=== PATIENT | male | born 1970 | race Caucasian/White ===

== ENCOUNTER 2017-01-11 15:29 | Emergency (ER) | payer OTHER ==
[~2017-01-11] VITALS: Ht 177.8 cm; Wt 98.5 kg
[2017-01-11 15:36] VITALS: BP 168/84; TEMP 36.7; Ht 177.8 cm; Wt 98.5 kg
[2017-01-11] MEDS ORDERED: CYCL10TA6 PO (16:18)
[2017-01-11] MEDS ORDERED: PRED50TA PO (16:18)
--- NOTE | 2017-01-11 16:19 | EMERGENCY ROOM VISIT NOTE ---
ED Visit Note First contact with patient: 15:47 Chief Complaint: Lower Back Pain History of Present Illness: Patient is a 46-year-old male who presents to the emergency Department this evening for evaluation of acute onset of low back pain. He reports that he was lifting a kayak and attempting to twist when he developed an acute onset of low back pain. He had difficulty with changes in position which prompted his visit today. He reports trying to take 2 ibuprofen without relief of symptoms. He does report a history of similar symptoms last year which had initially resulted with numbness down the RIGHT leg. He has no numbness or tingling today. There is been no loss of control bowel/bladder saddle anesthesia. The patient rates his current discomfort as an 8/10. He denies any fevers, chills, abdominal pain, hematochezia, melena, hematuria, or dysuria. Medications: Reviewed and discussed with the patient. Allergies: No known allergies. PMH: No pertinent past medical history. SHx: Patient is a 46-year-old male who lives locally. ROS: All pertinent positive and negative review of systems are appropriately documented in the History of Present Illness. Physical Exam: VITAL SIGNS - Vital signs and nursing notes were reviewed. GENERAL - 46-year-old male appearing his stated age and in noticeable discomfort throughout the exam. NECK - FROM of the cervical spine. ABDOMEN - Abdominal contour flat without pulsations or visible masses. BS normoactive all four quadrants. No tenderness, palpable masses, hepatosplenomegaly, or ascites noted. MUSCULOSKELETAL - ROM of the lumbar spine region was limited in all directions. Pt was laying on the exam table. Pt made semi-guarded movements when asked to change position. No step-off deformities were palpated down the thoracolumbar spines. Moderate Tenderness to Palpation with paraspinal muscle spasm experienced at the level of the lumbar paraspinal muscle distribution. No reproducible tenderness to palpation across the iliac spine. NEUROLOGIC - REFLEXES: +3/4 patellar reflexes B/L. SENSORY: Spinothalamic tract was found to be intact with ability to discriminate sharp versus dull sensation at the level of hip joint down do the great toe. No sensory defects of the dorsal column were appreciated utilizing light touch for evaluation. CEREBELLAR: Pt able to perform rapid alternating movements of the feet. EXTREMITIES - Range of Motion - No tremors, ticks, or fasciculations of the lower extremities noticed during inspection. FROM of the lower extremities. No clonus noted with PROM of the lower extremities bilaterally. Pt able to perform straight leg raises B/L without any difficulty. Victorino's test (KE test) was unremarkable for focal Sacroiliac Dysfunction. Hip scouring produced no pain. Pt had +5/5 strength appreciated bilaterally in the lower extremities against examiner's resistance. VASCULAR - Capillary refill of the great toe was brisk. No mottling or blanching of the extremities present. +3/5 dorsalis pedis pulses palpated bilaterally. ED Course: Patient was seen and evaluated by myself. I had a lengthy conversation with the patient regarding his symptoms. The patient has reproducible active muscle spasm noted in the lumbar paraspinal musculature. Patient declines anything stronger for pain. He was provided a prescription for prednisone and Flexeril. I do not feel that imaging studies are necessary or appropriate this point. He has no worrisome radicular symptoms or exam findings. The patient will follow-up with his primary care provider from today's visit. He will return for changing/worsening symptoms. Patient discharged home in good condition. In the evaluation and treatment of this patient the following differential diagnoses were considered: Cauda equina syndrome, discitis, HNP, sciatica, epidural abscess, psoas abscess, musculoskeletal strain, lumbar fracture, lumbar dislocation, lumbar subluxation, spondylolisthesis, spondylosis, or compression fracture. Impression: Lumbar Pain - Muscular Spasm Discharge Instructions: You have been treated in the Emergency Department for Back Pain. You have been prescribed Flexeril (cyclobenzaprine) 1-2 tabs orally, three times per day. Do NOT exceed 30 mg (6 tabs) per day. Take your first dose at bedtime as it can make you drowsy. Always take all medications as prescribed. You have been prescribed Prednisone 50 mg to be taken orally once a day for the next 5 days. This is an anti-inflammatory medicine to be used to help minimize your symptoms. You should take the COMPLETE course of the medication. For pain control, you can use the following [id number] medicines (if >12 yo): - Regular strength (325mg/tab) Tylenol (acetaminophen) 2 tabs every 4-6 hours as needed. Do not exceed 12 tablets in a 24 hour period. Avoid taking more than 4 grams (4000 mg) of Tylenol per day. This includes any other sources of acetaminophen you may take on a regular basis. - Regular strength (200 mg/tab) Advil (ibuprofen) 1-2 tabs every 4-6 hours as needed. Do not exceed a dose of 3200 mg per day. If this is an acute injury, ice can be applied to the area of pain for the first 3 days to help decrease pain and inflammation. After the first 3 days, a heating pad can be used over the area for continued soothing relief. You should schedule a follow-up appointment in 2-3 days with your Primary Care Provider for further evaluation and treatment of your back pain. Return to the Emergency Department if your current symptoms worsen despite treatment course outlined above, or if you develop any of the following symptoms : intractable pain despite aforementioned treatment course, loss of control of your bowel or bladder, numbness or tingling in your groin, or development of a fever. Current/Historical Medications Scheduled Cyclobenzaprine Hcl (Flexeril), 10 MG PO TID Prednisone (Prednisone), 50 MG PO DAILY Allergies Coded Allergies: No Known Allergies (Unverified Allergy, Mild, NONE, 05/24/09) Vital Signs Date Time Temp Pulse Resp B/P Pulse Ox O2 Delivery O2 Flow Rate FiO2 01/11/17 16:27 74 16 98 01/11/17 15:36 36.7 68 16 168/84 98 Room Air Departure Information Impression Primary Impression: Lumbar paraspinal muscle spasm Dispostion Home / Self-Care Condition GOOD Prescriptions Cyclobenzaprine Hcl (FLEXERIL) 10 Mg Tab 10 MG PO TID for 5 Days, #15 TAB Prov: Jose Angel Zimmer PA-C 01/11/17 Prednisone (Prednisone) 50 Mg Tab 50 MG PO DAILY for 5 Days, #5 TAB Prov: Jose Angel Zimmer PA-C 01/11/17 Referrals Kodak Resendez M.D. (MEDICAL) (PCP) Patient Instructions Back Pain - [facility], [facility] Additional Instructions You have been treated in the Emergency Department for Back Pain. You have been prescribed Flexeril (cyclobenzaprine) 1-2 tabs orally, three times per day. Do NOT exceed 30 mg (6 tabs) per day. Take your first dose at bedtime as it can make you drowsy. Always take all medications as prescribed. You have been prescribed Prednisone 50 mg to be taken orally once a day for the next 5 days. This is an anti-inflammatory medicine to be used to help minimize your symptoms. You should take the COMPLETE course of the medication. For pain control, you can use the following [id number] medicines (if >12 yo): - Regular strength (325mg/tab) Tylenol (acetaminophen) 2 tabs every 4-6 hours as needed. Do not exceed 12 tablets in a 24 hour period. Avoid taking more than 4 grams (4000 mg) of Tylenol per day. This includes any other sources of acetaminophen you may take on a regular basis. - Regular strength (200 mg/tab) Advil (ibuprofen) 1-2 tabs every 4-6 hours as needed. Do not exceed a dose of 3200 mg per day. If this is an acute injury, ice can be applied to the area of pain for the first 3 days to help decrease pain and inflammation. After the first 3 days, a heating pad can be used over the area for continued soothing relief. You should schedule a follow-up appointment in 2-3 days with your Primary Care Provider for further evaluation and treatment of your back pain. Return to the Emergency Department if your current symptoms worsen despite treatment course outlined above, or if you develop any of the following symptoms : intractable pain despite aforementioned treatment course, loss of control of your bowel or bladder, numbness or tingling in your groin, or development of a fever.
[2017-01-11 16:27] VITALS: PULSE 74; O2SAT 98
== END 2017-01-11 16:29 | disposition home or self-care (01) ==
LOC: C.EDB 15:31 → C.EDD 16:29
DX: M54.5 Low back pain (principal); M62.838 Other muscle spasm; Z79.899 Other long term (current) drug therapy